=== PATIENT | male | born 1990 | race Caucasian/White ===

== ENCOUNTER 2018-03-07 12:24 | Emergency (ER) | payer MEDICAID ==
[~2018-03-07] VITALS: Ht 182.9 cm; Wt 75.0 kg
[2018-03-07 12:25] VITALS: BP 109/67
== END 2018-03-07 15:53 | disposition left against medical advice (07) ==
LOC: ER 13:04 → EDBD 13:04 → ER 15:53
DX: R10.9 Unspecified abdominal pain (principal); Z53.21 Procedure and treatment not carried out due to patient leaving prior to being seen by health care provider